=== PATIENT | female | born 2005 | race Caucasian/White ===

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

== ENCOUNTER 2024-03-10 15:55 | Emergency (ER) | payer OTHER, SELFPAY ==
--- NOTE | ~2024-03-10 | US_ITS ---
EXAMINATION: US renal BI DATE: 03/10/2024 20:17 INDICATION: Right flank pain and hematuria TECHNIQUE: Multiple ultrasound grayscale images of the kidneys were obtained. COMPARISON: None. FINDINGS: The right kidney measures 11.1 x 4.7 x 4.3 cm. The left kidney measures 1.7 x 4.6 x 4.5 cm. The kidne ys demonstrate normal echogenicity. There is mild right hydronephrosis. There is no left hydronephros is. No stones identified. The bladder is normal. IMPRESSION: 1. Mild right hydronephrosis. Reviewed, dictated and finalized at location A.
[2024-03-10 16:03] VITALS: BP 137/61; PULSE 99; RESP 16; TEMP 36.6; O2SAT 99
[2024-03-10 17:54] VITALS: BP 108/59; PULSE 93; RESP 18; O2SAT 100
--- NOTE | 2024-03-10 18:05 | ED.FEMALEGU ---
HPI - Female Genitourinary General Chief complaint: Urogenital-Female <Lacy Mistry PA-C - Last Filed: 03/10/24 21:07> Stated complaint: RIGHT FLANK PAIN <Lacy Mistry PA-C - Last Filed: 03/10/24 21:07> Time Seen by Provider: 03/10/24 17:01 <Lacy Mistry PA-C - Last Filed: 03/10/24 21:07> History of Present Illness HPI Narrative: 18-year-old female, A1, who is currently 21 weeks presents to emergency department for right flank pain for 1 day. Patient states she began having pain Last night to her right flank and is concerned she has a kidney infection. States she has similar pain in July 2023 and was evaluated for this, the source of her pain was unknown. She denies history of kidney stones. She does state that she has pain in her right kidney when she urinates but denies burning when urinating. Denies hematuria, urinary frequency urgency. Denies abdominal pain, fever, nausea vomiting, chest pain or shortness of breath. Her OBGYN is Dr. Adler. 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 She denies vaginal bleeding, leaking vaginal fluids. <Lacy Mistry PA-C - Last Filed: 03/10/24 21:07> Related Data Allergies/Adverse reactions: Allergies Allergy/AdvReac Type Severity Reaction Status Date / Time No Known Allergies Allergy Verified 03/10/24 17:55 <Lacy Mistry PA-C - Last Filed: 03/10/24 21:07> Review of Systems Review of Systems: All systems reviewed & are unremarkable except as noted in HPI and below <Lacy Mistry PA-C - Last Filed: 03/10/24 21:07> Exam Narrative: GENERAL: Well-appearing, well-nourished, and in no acute distress. HEAD: Normocephalic, atraumatic. EYES: PERRLA and EOMI. ENT: Nares clear, no rhinorrhea or epistaxis. Mucous membranes moist. NECK: Supple. CHEST: Clear to auscultation. No respiratory distress. HEART: Regular rate and rhythm. No murmur heard. Normal peripheral pulses. ABDOMEN: abdomen gravid, uterus palpated just near the umbilicus. abdomen otherwise soft, nontender. Normoactive bowel sounds. BACK: Minimal tenderness to right CVA, more tenderness noted lateral to the CVA region. No overlying skin changes EXTREMITIES: Normal range of motion. No edema. SKIN: Warm, dry, no rash. NEURO: No focal deficits. Alert and oriented x3 <Lacy Mistry PA-C - Last Filed: 03/10/24 21:07> Course OPERATIONS SUPPORT COORDINATOR/PA Physician Supervision For this patient encounter, I reviewed the OPERATIONS SUPPORT COORDINATOR or PA documentation, treatment plan, and medical decision making; and I had [id number] time with this patient. <Mg Martinez MD - Last Filed: 03/10/24 21:54> Vital Signs Vital signs: Vital Signs Temperature 97.9 F 03/10/24 16:03 Pulse Rate 99 03/10/24 16:03 Respiratory Rate 16 03/10/24 16:03 Blood Pressure 137/61 03/10/24 16:03 Pulse Oximetry 99 03/10/24 16:03 Oxygen Delivery Room Air 03/10/24 16:03 Temperature 97.9 F 03/10/24 16:03 Pulse Rate 87 03/10/24 20:12 Respiratory Rate 17 03/10/24 18:35 Blood Pressure 112/71 03/10/24 20:12 Pulse Oximetry 100 03/10/24 18:35 Oxygen Delivery Room Air 03/10/24 16:03 <Lacy Mistry PA-C - Last Filed: 03/10/24 21:07> Vital Signs Temperature 97.9 F 03/10/24 16:03 Pulse Rate 99 03/10/24 16:03 Respiratory Rate 16 03/10/24 16:03 Blood Pressure 137/61 03/10/24 16:03 Pulse Oximetry 99 03/10/24 16:03 Oxygen Delivery Room Air 03/10/24 16:03 Temperature 97.9 F 03/10/24 16:03 Pulse Rate 87 03/10/24 20:12 Respiratory Rate 17 03/10/24 18:35 Blood Pressure 112/71 03/10/24 20:12 Pulse Oximetry 100 03/10/24 18:35 Oxygen Delivery Room Air 03/10/24 16:03 <Mg Martinez MD - Last Filed: 03/10/24 21:54> MDM - Female Genitourinary MDM Narrative Medical decision making narrative: 18-year-old female who is currently
[2024-03-10] MEDS: ACETAMINOPHEN 500 MG TABLET 1000 MG PO (18:13)
[2024-03-10 18:26] LABS: Basophils Percent Auto 0.4 % (0.2-1.2); Eosinophils Absolute Auto 0.1 K/mm3 (0-0.3); Eosinophils Percent Auto 1.3 % (0-4.4); Hematocrit 29.1 % (37.0-47.0); Hemoglobin 9.2 g/dL (12.0-15.0); Immature Granulocyte Absolute 0.08 K/mm3 (0.00-0.031); Immature Granulocyte Percent A 0.7 % (0-0.5); Lymphocytes Absolute Auto 1.56 K/mm3 (0.9-3.2); Lymphocytes Percent Auto 14.4 % (18.3-44.2); Mean Corpuscular HGB Conc 31.6 g/dl (32-36); Mean Corpuscular Hemoglobin 23.8 pg (26-34); Mean Corpuscular Volume 75.4 fl (80-100); Mean Platelet Volume 10.4 fl (7.4-10.4); Monocytes Percent Auto 8.7 % (2.6-8.5); Neutrophils Absolute Auto 8.1 K/mm3 (1.3-6.7); Neutrophils Percent Auto 74.5 % (45.5-73.1); Platelet Count Result 264 k/mm3 (150-375); Red Blood Count 3.86 M/mm3 (4.2-5.4); Red Cell Distribution Width 15.2 % (11.5-14.5); White Blood Count 10.9 K/mm3 (4.5-10.0)
[2024-03-10 18:35] VITALS: BP 107/53; PULSE 83; RESP 17; O2SAT 100
[2024-03-10 18:44] LABS: Alanine Aminotransferase 82 U/L (6-35); Albumin Level 3.7 g/dL (3.5-5.1); Alkaline Phosphatase 96 U/L (38-126); Anion Gap 6 mmol/L (4-12); Aspartate Amino Transferase 60 U/L (14-36); Bilirubin,Total 0.2 mg/dL (0.2-1.3); Blood Urea Nitrogen 6 mg/dL (7-17); Calcium 8.9 mg/dL (8.4-10.2); Carbon Dioxide 25 mmol/L (22-30); Chloride 104 mmol/L (98-107); Estimated CRCL calculation 138 ml/min; Estimated Glomerular Filt Rate > 60; Glucose 76 mg/dL (65-110); Potassium 3.7 mmol/L (3.4-5.0); Sodium 135 mmol/L (137-145)
[2024-03-10 18:45] LABS: Appearance Urine Clear (Clear); Bacteria Urine None Seen /hpf; Bilirubin Urine Negative (Negative); Blood Urine Non-Hemolyzed Trace (Negative); Color Urine Yellow (Yellow); Glucose Urine UA Negative (Negative); Ketones Urine Negative (Negative); Leukocyte Esterase Ur Negative LEU/UL (Negative); Nitrate Urine Negative (Negative); Non Pathogenic Casts 0-2; Protein Urine Negative (Negative); Specific Grav Ur 1.019 (1.001-1.035); Squamous Epithelial Cell Urine None Seen /hpf (Few); WBC Urine 0-5 /hpf (0-3); pH Urine 6.5 (5.0-9.0)
[2024-03-10 18:56] LABS: Add Urine Microscopic? YES
[2024-03-10 20:12] VITALS: BP 112/71; PULSE 87
[2024-03-10 22:16] VITALS: BP 102/44; PULSE 91; RESP 18; O2SAT 99
== END 2024-03-10 22:19 | disposition home or self-care (01) ==
PROVIDERS: Emergency Provider Physician Assistant; PCP Pediatrics
DX: O26.892 Other specified pregnancy related conditions, second trimester (principal); R10.9 Unspecified abdominal pain; R31.1 Benign essential microscopic hematuria; O99.012 Anemia complicating pregnancy, second trimester; D50.9 Iron deficiency anemia, unspecified; Z3A.21 21 weeks gestation of pregnancy
CPT/HCPCS: 36415; 76775; 80053; 81001; 85025; 96365; 99284; A9270; J0696

== ENCOUNTER 2024-03-13 11:42 | Outpatient (CLI) | payer OTHER, SELFPAY ==
--- NOTE | ~2024-03-13 | US_ITS ---
Renal-Bladder ultrasound Clinical History: Low back pain Technique: Real-time sonographic imaging of the kidneys and urinary bladder was performed. Findings: The right kidney measures 12.3 cm in length and the left kidney measures 11.7 cm. There is mild bilateral hydronephrosis. No renal stone evident. Renal cortical echogenicity is within normal l imits. No renal mass lesion is identified. The urinary bladder is moderately distended at the time of this exam. No intraluminal echoes are iden tified. No abnormal wall thickening is seen. Impression: Mild bilateral hydronephrosis. Reviewed, dictated and finalized at location M. Impression: Mild bilateral hydronephrosis.
== END 2024-03-13 11:43 ==
PROVIDERS: PCP Internal Medicine; Visit Provider Obstetrics & Gynecology
DX: M54.50 Low back pain, unspecified (principal); N13.30 Unspecified hydronephrosis
CPT/HCPCS: 76775

== ENCOUNTER 2024-03-15 16:27 | Observation (INO) | payer OTHER, SELFPAY ==
[2024-03-15] VITALS (7 sets, daily range): BP systolic 126–137; BP diastolic 53–69; PULSE 87–98; RESP 16–18; TEMP 37.1; BMI 28.6
--- NOTE | 2024-03-15 16:59 | OBADM ---
This patient, Janine Ulrich, admitted to the OB room 116 for observation. Patient/family oriented to hospital policies and general routines including ID bracelet, bed and alarms, visiting hours, pain management, procedures, bathroom and other care routines, personal items, smoking policy, room service/diet, and visiting hours. Patient/Family are encouraged to report perceived risks to care and to ask questions if they do not understand what they are told or what they should do.
[2024-03-15] MEDS: LACTATED RINGERS 1,000 ML 999 ML IV CONT (17:59)
[2024-03-15 18:12] LABS: Basophils Absolute Auto 0.1 K/mm3 (0.0-0.1); Basophils Percent Auto 0.5 % (0.2-1.2); Eosinophils Absolute Auto 0.1 K/mm3 (0-0.3); Eosinophils Percent Auto 1.1 % (0-4.4); Hematocrit 29.8 % (37.0-47.0); Hemoglobin 9.2 g/dL (12.0-15.0); Immature Granulocyte Absolute 0.06 K/mm3 (0.00-0.031); Immature Granulocyte Percent A 0.5 % (0-0.5); Lymphocytes Absolute Auto 1.65 K/mm3 (0.9-3.2); Lymphocytes Percent Auto 14.9 % (18.3-44.2); Mean Corpuscular HGB Conc 30.9 g/dl (32-36); Mean Corpuscular Hemoglobin 23.8 pg (26-34); Monocytes Absolute Auto 0.9 K/mm3 (0.1-0.6); Monocytes Percent Auto 7.9 % (2.6-8.5); Neutrophils Absolute Auto 8.3 K/mm3 (1.3-6.7); Neutrophils Percent Auto 75.1 % (45.5-73.1); Platelet Count Result 296 k/mm3 (150-375); Red Blood Count 3.87 M/mm3 (4.2-5.4); Red Cell Distribution Width 15.3 % (11.5-14.5); White Blood Count 11.1 K/mm3 (4.5-10.0)
[2024-03-15 18:25] LABS: Alanine Aminotransferase 42 U/L (6-35); Alkaline Phosphatase 101 U/L (38-126); Anion Gap 11 mmol/L (4-12); Aspartate Amino Transferase 29 U/L (14-36); Bilirubin,Total 0.3 mg/dL (0.2-1.3); Blood Urea Nitrogen 7 mg/dL (7-17); Calcium 9.1 mg/dL (8.4-10.2); Carbon Dioxide 19 mmol/L (22-30); Chloride 107 mmol/L (98-107); Estimated CRCL calculation 138 ml/min; Estimated Glomerular Filt Rate > 60; Glucose 81 mg/dL (65-110); Potassium 3.5 mmol/L (3.4-5.0); Sodium 137 mmol/L (137-145)
[2024-03-15] MEDS: ACETAMINOPHEN 500 MG TABLET 1000 MG PO (18:35)
--- NOTE | 2024-03-17 13:01 | PM.OBTRLD ---
OB - Triage/Final Diagnosis Visit Information Date of evaluation: 03/15/24 Reason for evaluation: other (abd cramping) Comments/Additional reasons for admission: I have assessed the risk for this patient, Janine James Ulrich, and determined that she would benefit from observation care. Evaluation Laboratory results: Laboratory Tests 03/15/24 18:01 WBC 11.1 H RBC 3.87 L Hgb 9.2 L Hct 29.8 L MCV 77.0 L MCH 23.8 L MCHC 30.9 L RDW 15.3 H Plt Count 296 MPV 11.0 H Immature Gran % (Auto) 0.5 Neut % (Auto) 75.1 H Lymph % (Auto) 14.9 L [place] % (Auto) 7.9 Eos % (Auto) 1.1 Baso % (Auto) 0.5 Lymph # (Auto) 1.65 [place] # (Auto) 0.9 H Eos # (Auto) 0.1 Baso # (Auto) 0.1 Abs Immat Gran (auto) 0.06 H Absolute Neuts (auto) 8.3 H Absolute Nucleated RBC 0.000 Nucleated RBC % 0.0 Sodium 137 Potassium 3.5 Chloride 107 Carbon Dioxide 19 L Anion Gap 11 BUN 7 Creatinine 0.50 L Estim Creat Clear Calc 138 Estimated GFR > 60 Glucose 81 Calcium 9.1 Total Bilirubin 0.3 AST 29 ALT 42 H Alkaline Phosphatase 101 Total Protein 7.0 Albumin 4.0
== END 2024-03-15 19:21 | disposition home or self-care (01) ==
PROVIDERS: Advanced Practice Midwife; Admitting Provider Obstetrics & Gynecology; PCP Internal Medicine; Visit Provider Obstetrics & Gynecology
DX: O26.892 Other specified pregnancy related conditions, second trimester (principal); R10.9 Unspecified abdominal pain; Z3A.22 22 weeks gestation of pregnancy
CPT/HCPCS: 36415; 80053; 85025; A9270; G0378; G0379; J7120

== ENCOUNTER 2024-03-16 11:34 | Observation (INO) | payer OTHER, SELFPAY ==
--- NOTE | ~2024-03-16 | US_ITS ---
Pelvic ultrasound. Clinical History: Vaginal bleeding, third trimester Technique: Realtime transabdominal and transvaginal scanning of the pelvis was performed. Color flow Doppler and Doppler spectral analysis were performed. Findings: The uterus is anteverted, and contains an intrauterine gestation. heart rate is 143 b pm. Breech presentation noted. Placenta anteriorly located. No significant placental abnormality iden tified. Neither ovary seen. No adnexal mass seen. There is no evidence of free fluid in the cul de sac. Impression: No placental abnormality seen. Breech presentation of live intrauterine gestation, with heart rate 143 bpm. Reviewed, dictated and finalized at location . Impression: No placental abnormality seen. Breech presentation of live intrauterine gestation, with heart rate 143 b pm.
--- NOTE | 2024-03-16 11:34 | OBADM ---
This patient, Janine Ulrich, admitted to the OB room OB Post 116 for observation. pt states she started to have vaginal bleeding yesterday around 1600 and was seen in the hospital evaluated. SVE and Lab was done and sent home. she has never have to wear liner or pads for vaginal bleeding and only when she wipes. She states she still has vaginal bleeding so came if for evaluation. Patient/family oriented to hospital policies and general routines including ID bracelet, bed and alarms, visiting hours, pain management, procedures, bathroom and other care routines, personal items, smoking policy, room service/diet, and visiting hours. Patient/Family are encouraged to report perceived risks to care and to ask questions if they do not understand what they are told or what they should do.
[2024-03-16 12:00] VITALS: BMI 28.8
[2024-03-16 12:06] VITALS: BP 127/63; PULSE 90
[2024-03-16 12:15] VITALS: BP 122/64; PULSE 88
--- NOTE | 2024-04-09 21:42 | PM.OBTRLD ---
OB - Triage/Final Diagnosis Visit Information Comments/Additional reasons for admission: I have assessed the risk for this patient, Janine Ulrich, and determined that she would benefit from observation care. Final Diagnosis (1) Vaginal bleeding: Code(s): N93.9 - Abnormal uterine and vaginal bleeding, unspecified Status: Acute
== END 2024-03-16 13:20 | disposition home or self-care (01) ==
PROVIDERS: Admitting Provider Obstetrics & Gynecology; PCP Internal Medicine; Visit Provider Obstetrics & Gynecology
DX: O46.90 Antepartum hemorrhage, unspecified, unspecified trimester (principal)
CPT/HCPCS: 76815; G0378; G0379

== ENCOUNTER 2024-06-19 06:12 | Observation (INO) | payer OTHER, SELFPAY ==
[2024-06-19 06:37] VITALS: BP 115/66; PULSE 115
[2024-06-19 06:45] VITALS: BP 130/79; PULSE 106
[2024-06-19 06:59] VITALS: BMI 31.4
[2024-06-19 07:00] VITALS: BP 134/70; PULSE 93
--- NOTE | 2024-06-19 07:08 | LDADM ---
This patient, Janine Ulrich, was admitted to OB Post 116 on 06/19/24 at 06:12. Plans for labor, pain management and were discussed with patient. Patient/family oriented to hospital policies and general routines including ID bracelet, bed and alarms, visiting hours, pain management, procedures, bathroom and other care routines, personal items, smoking policy, room service/diet and guest tray routines, security routines, and visiting hours. Patient/Family are encouraged to report perceived risks to care and to ask questions if they do not understand what they are told or what they should do. See OBIX for further documentation.
[2024-06-19 07:10] LABS: Add Urine Microscopic? NO; Appearance Urine Clear (Clear); Bilirubin Urine Negative (Negative); Blood Urine Negative (Negative); Color Urine Yellow (Yellow); Glucose Urine UA Negative (Negative); Ketones Urine Negative (Negative); Leukocyte Esterase Ur Negative LEU/UL (Negative); Nitrate Urine Negative (Negative); Protein Urine Negative (Negative); Urobilinogen Urine 0.2 mg/dL (<2.0)
[2024-06-19 07:15] VITALS: BP 128/73; PULSE 98
[2024-06-19 07:30] VITALS: BP 138/72; PULSE 94
--- NOTE | 2024-06-19 08:01 | PC.NURSE ---
Patient admitted for observation with complaints of abdominal cramping and vaginal bleeding with discharge since 0500 this morning. Patient rates intermittent cramping a 3-4/10 on the pain scale. A ROM+ test was performed and was negative. UA was sent and was normal. No bleeding was noted upon inspection. RN spoke with Dr. Adler on phone at [phone]. Notified of test results, category I tracing, contraction frequency, and patient's reported pain level. Patient has an appointment in the office later today with Dr. Adler. gave verbal orders for discharge. Patient agrees with plan of care and has no questions at this time.
[2024-06-19 08:10] LABS: OBXCEM ROM Plus Negative (Negative)
--- NOTE | 2024-07-13 20:00 | PM.OBTRLD ---
OB - Triage/Final Diagnosis Visit Information Comments/Additional reasons for admission: I have assessed the risk for this patient, Janine James Robersonyoli, and determined that she would benefit from observation care. Evaluation Laboratory results: Laboratory Tests 06/19/24 06/19/24 06:59 07:01 Urine Color Yellow Urine Appearance Clear Urine pH 7.0 Ur Specific [place] 1.010 Urine Protein Negative Urine Glucose (UA) Negative Urine Ketones Negative Ur Blood (Man) Negative Urine Nitrate Negative Urine Bilirubin Negative Urine Urobilinogen 0.2 Leukocyte Esterase Rfl Negative Membranes Rupture Rom plus negative Final Diagnosis (1) False labor: Code(s): O47.9 - False labor, unspecified Status: Acute
== END 2024-06-19 07:54 | disposition home or self-care (01) ==
PROVIDERS: Admitting Provider Obstetrics & Gynecology; Visit Provider Obstetrics & Gynecology
DX: O47.03 False labor before 37 completed weeks of gestation, third trimester (principal); Z3A.36 36 weeks gestation of pregnancy
CPT/HCPCS: 81003; 84112; G0378; G0379

== ENCOUNTER 2024-06-20 11:35 | Observation (INO) | payer OTHER, SELFPAY ==
[2024-06-20] VITALS (15 sets, daily range): BP systolic 114–149; BP diastolic 59–89; PULSE 76–107; RESP 16–22; TEMP 36.8; O2SAT 99–100; BMI 32.6
--- NOTE | 2024-06-20 12:22 | ECG_ITS ---
Test Date: 2024-06-20 12:49:43 Measurements Intervals [place] Rate: 82 P: 13 SC: 153 QRS: 15 QRSD: 78 T: 0 QT: 348 QTc: 407 Interpretive Statements SINUS RHYTHM CONSIDER INFERIOR INFARCT, AGE INDETERMINATE BASELINE ARTIFACT- I, II, III, AVR, AVL, AVF ABNORMAL ECG No previous ECG available for comparison Electronically Signed On 06-20-2024 13:05:21 [employer] by Mac Parmar D.O.
--- NOTE | 2024-06-20 13:14 | PC.NURSE ---
Annel MADERA RN in room to monitor patient.
[2024-06-20 13:50] LABS: Basophils Absolute Auto 0.1 K/mm3 (0.0-0.1); Basophils Percent Auto 0.3 % (0.2-1.2); Eosinophils Percent Auto 0.3 % (0-4.4); Hematocrit 31.3 % (37.0-47.0); Hemoglobin 9.2 g/dL (12.0-15.0); Immature Granulocyte Absolute 0.21 K/mm3 (0.00-0.031); Immature Granulocyte Percent A 1.4 % (0-0.5); Lymphocytes Absolute Auto 0.78 K/mm3 (0.9-3.2); Lymphocytes Percent Auto 5.2 % (18.3-44.2); Mean Corpuscular HGB Conc 29.4 g/dl (32-36); Mean Corpuscular Hemoglobin 20.6 pg (26-34); Mean Corpuscular Volume 70.2 fl (80-100); Mean Platelet Volume 10.3 fl (7.4-10.4); Monocytes Absolute Auto 0.3 K/mm3 (0.1-0.6); Monocytes Percent Auto 2.1 % (2.6-8.5); Neutrophils Absolute Auto 13.6 K/mm3 (1.3-6.7); Neutrophils Percent Auto 90.7 % (45.5-73.1); Platelet Count Result 242 k/mm3 (150-375); Red Blood Count 4.46 M/mm3 (4.2-5.4); Red Cell Distribution Width 21.7 % (11.5-14.5)
--- NOTE | 2024-06-20 13:51 | ED.GENADULT ---
HPI - General Adult General Chief complaint: Dizziness Stated complaint: lightheaded/dizzy Time Seen by Provider: 06/20/24 12:08 History of Present Illness HPI narrative: patient 18-year-old female who presents emergency department with chief complaint of feeling strange and dizziness and numbness over her body while receiving an iron infusion. Patient was in the infusion center receiving an iron infusion and started having numbness and started having dizziness the patient is 36 weeks reported that she was feeling some contractions as well Related Data Home Medications Medication Instructions Recorded Confirmed vit no.95-ferrous 1 tablet PO DAILY 03/15/24 06/19/24 fumarate 28 mg-folic acid 800 mcg tablet () ferrous sulfate 325 mg (65 mg 325 mg PO DAILY 06/13/24 06/19/24 iron) tablet (iron) Allergies Allergy/AdvReac Type Severity Reaction Status Date / Time No Known Allergies Allergy Verified 06/20/24 12:44 Review of Systems Review of Systems: A 10 system review of systems was completed on the patient and is negative except for what is stated in the HPI. Nursing and ancillary documentation was reviewed. Exam Narrative: GENERAL: Well-appearing, well-nourished, and in no acute distress. HEAD: Normocephalic, atraumatic. EYES: PERRLA and EOMI. ENT: Nares clear, no rhinorrhea or epistaxis. Mucous membranes moist. NECK: Supple. CHEST: Clear to auscultation. No respiratory distress. HEART: Regular rate and rhythm. No murmur heard. Normal peripheral pulses. ABDOMEN: Soft, nontender, nondistended, normal active bowel sounds. gravid abdomen EXTREMITIES: Normal range of motion. No edema. SKIN: Warm, dry, no rash. NEURO: No focal deficits. Alert and oriented x3. PSYCH: Normal mood and affect. Course Vital Signs Vital signs: Vital Signs Temperature 36.8 C 06/20/24 11:38 Pulse Rate 103 H 06/20/24 11:38 Respiratory Rate 16 06/20/24 11:38 Blood Pressure 149/89 H 06/20/24 11:38 Pulse Oximetry 100 06/20/24 11:38 Oxygen Delivery Room Air 06/20/24 11:38 Temperature 36.8 C 06/20/24 11:38 Pulse Rate 83 06/20/24 12:45 Respiratory Rate 16 06/20/24 11:38 Blood Pressure 149/89 H 06/20/24 11:38 Pulse Oximetry 100 06/20/24 11:38 Oxygen Delivery Room Air 06/20/24 11:38 Medical Decision Making MDM Narrative Medical decision making narrative: differential diagnosis includes pre from, contractions, labor, false labor, side-effect medication the patient's symptoms from the infusion have resolved at this point the patient was seen by the labor and delivery nurse and had a negative amniotic fluid check patient will be sent over to OB for further observation Vital Signs Vital Signs: Vital Signs Temperature 36.8 C 06/20/24 11:38 Pulse Rate 103 H 06/20/24 11:38 Respiratory Rate 16 06/20/24 11:38 Blood Pressure 149/89 H 06/20/24 11:38 Pulse Oximetry 100 06/20/24 11:38 Oxygen Delivery Room Air 06/20/24 11:38 Temperature 36.8 C 06/20/24 11:38 Pulse Rate 83 06/20/24 12:45 Respiratory Rate 16 06/20/24 11:38 Blood Pressure 149/89 H 06/20/24 11:38 Pulse Oximetry 100 06/20/24 11:38 Oxygen Delivery Room Air 06/20/24 11:38 Lab Data 06/20/24 13:29 06/20/24 13:29 Labs: Lab Results 06/20/24 06/20/24 06/20/24 Range/Units 13:14 13:29 15:00 WBC 15.0 H (4.5-10.0) K/mm3 RBC 4.46 (4.2-5.4) M/mm3 Hgb 9.2 L (12.0-15.0) g/dL Hct 31.3 L (37.0-47.0) % MCV 70.2 L (80-100) fl MCH 20.6 L (26-34) pg MCHC 29.4 L (32-36) g/dl RDW 21.7 H (11.5-14.5) % Plt Count 242 (150-375) k/mm3 MPV 10.3 (7.4-10.4) fl Immature Gran % (Auto) 1.4 H (0-0.5) % Neut % (Auto) 90.7 H (45.5-73.1) % Lymph % (Auto) 5.2 L (18.3-44.2) % [place] % (Auto) 2.1 L (2.6-8.5) % Eos % (Auto) 0.3 (0-4.4) % Baso % (Auto) 0.3 (0.2-1.2) % Lymph # (Auto) 0.78 L (0.9-3.2) K/mm3 [place] # (Auto) 0.3 (0.1-0.6) K/mm3 Eos # (Auto) 0.0 (0-0.3) K/mm3 Baso # (Auto) 0.1 (0.0-0.1) K/mm3 Abs Immat Gran (auto) 0.21 H (0.00-0.031) K/mm3 Absolute Neuts (auto) 13.6 H (1.3-6.7) K/mm3 Absolute Nucleated RBC 0.000 (0.0-0.012) K/mm3 Nucleated RBC % 0.0 (0.0-0.2) % Platelet Estimate Adequate (Adequate) Hypochromasia 1+ Anisocytosis 2+ Microcytosis 1+ (NORMAL) Ovalocytes 1+ Schistocytes None seen Sodium 135 L (137-145) mmol/L Potassium 4.0 (3.4-5.0) mmol/L Chloride 109 H (98-107) mmol/L Carbon Dioxide 20 L (22-30) mmol/L Anion Gap 6 (4-12) mmol/L BUN 5 L (7-17) mg/dL Creatinine 0.50 L (0.7-1.0) mg/dL Estim Creat Clear Calc 147 ml/min Estimated GFR > 60 (59 - ) Glucose 81 (65-110) mg/dL Calcium 9.2 (8.4-10.2) mg/dL Magnesium 1.8 (1.6-2.3) mg/dL Total Bilirubin 0.5 (0.2-1.3) mg/dL AST 26 (14-36) U/L ALT 20 (6-35) U/L Alkaline Phosphatase 188 H (38-126) U/L Total Protein 7.0 (6.3-8.2) g/dL Albumin 3.6 (3.5-5.1) g/dL Urine Color Yellow (Yellow) Urine Appearance Cloudy H (Clear) Urine pH 7.5 (5.0-9.0) Ur Specific [place] 1.012 (1.001-1.035) Urine Protein Negative (Negative) mg/dL Urine Glucose (UA) Negative (Negative) mg/dL Urine Ketones Negative (Negative) mg/dL Ur Blood (Man) Negative (Negative) Urine Nitrate Negative (Negative) Urine Bilirubin Negative (Negative) Urine Urobilinogen 0.2 (<2.0) mg/dL Leukocyte Esterase Rfl 2+ H (Negative) [place]/UL Urine RBC 0-2 (0-2) /hpf Urine WBC 11-20 H (0-3) /hpf Ur Squamous Epith Cells Moderate (Few) /hpf Urine Bacteria 1+ H /hpf Urine Casts 0-2 Membranes Rupture Rom plus negative (Negative) Discharge Plan Discharge Clinical Impression: Abdominal pain during , Medication side effect Patient Disposition: Still a Patient Condition: Stable Prescriptions: No Action ferrous sulfate [iron] 325 mg (65 mg iron) Tablet 325 mg PO DAILY PNV cmb#95-ferrous fumarate-FA [] 28 mg iron- 800 mcg Tablet 1 tablet PO DAILY Follow-up/Referrals: UNKNOWN,DOCTOR [Primary Care Provider] - Time of Disposition: 15:31
[2024-06-20 13:57] LABS: Add Urine Microscopic? YES; Appearance Urine Cloudy (Clear); Bacteria Urine 1+ /hpf; Bilirubin Urine Negative (Negative); Blood Urine Negative (Negative); Color Urine Yellow (Yellow); Glucose Urine UA Negative (Negative); Ketones Urine Negative (Negative); Leukocyte Esterase Ur 2+ LEU/UL (Negative); Nitrate Urine Negative (Negative); Non Pathogenic Casts 0-2; Protein Urine Negative (Negative); RBC Urine 0-2 /hpf (0-2); Specific Grav Ur 1.012 (1.001-1.035); Squamous Epithelial Cell Urine Moderate /hpf (Few); Urobilinogen Urine 0.2 mg/dL (<2.0); pH Urine 7.5 (5.0-9.0)
[2024-06-20 14:11] LABS: Platelet Estimate Adequate (Adequate)
[2024-06-20 14:12] LABS: Anisocytosis 2+; Hypochromasia 1+; Microcytosis 1+ (NORMAL); Ovalocytes 1+
[2024-06-20 14:13] LABS: Schistocytes None Seen
[2024-06-20 14:15] LABS: Alanine Aminotransferase 20 U/L (6-35); Albumin Level 3.6 g/dL (3.5-5.1); Alkaline Phosphatase 188 U/L (38-126); Anion Gap 6 mmol/L (4-12); Aspartate Amino Transferase 26 U/L (14-36); Bilirubin,Total 0.5 mg/dL (0.2-1.3); Blood Urea Nitrogen 5 mg/dL (7-17); Calcium 9.2 mg/dL (8.4-10.2); Carbon Dioxide 20 mmol/L (22-30); Chloride 109 mmol/L (98-107); Estimated CRCL calculation 147 ml/min; Estimated Glomerular Filt Rate > 60; Glucose 81 mg/dL (65-110); Magnesium 1.8 mg/dL (1.6-2.3); Sodium 135 mmol/L (137-145)
[2024-06-20 15:21] LABS: OBXCEM ROM Plus Negative (Negative)
--- NOTE | 2024-06-20 15:52 | OBADM ---
This patient, Janine Ulrich, admitted to the OB room Labor/Delivery/Recovery 118 for observation. Patient/family oriented to hospital policies and general routines including ID bracelet, bed and alarms, visiting hours, pain management, procedures, bathroom and other care routines, personal items, smoking policy, room service/diet, and visiting hours. Patient/Family are encouraged to report perceived risks to care and to ask questions if they do not understand what they are told or what they should do.
== END 2024-06-20 17:15 | disposition home or self-care (01) ==
LOC: ANHED 15:31 → ANHLDR 15:36
PROVIDERS: Admitting Provider Obstetrics & Gynecology; Emergency Provider Emergency Medicine; Visit Provider Obstetrics & Gynecology
DX: O26.893 Other specified pregnancy related conditions, third trimester (principal); R10.9 Unspecified abdominal pain; R42 Dizziness and giddiness; T45.4X5A Adverse effect of iron and its compounds, initial encounter; Z3A.36 36 weeks gestation of pregnancy
CPT/HCPCS: 36415; 80053; 81001; 83735; 84112; 85025; 87086; 93005; 99285; G0378

== ENCOUNTER 2024-07-09 05:56 | Inpatient (IN) | payer OTHER, SELFPAY ==
[2024-07-09] VITALS (146 sets, daily range): BP systolic 81–185; BP diastolic 42–151; PULSE 81–294; RESP 20; TEMP 36.1–36.9; O2SAT 97–100; BMI 33.0
--- NOTE | ~2024-07-09 | US_ITS ---
US venous doppler [facility] DATE: 07/11/2024 08:28 INDICATION: Left lower extremity pain and swelling. Positive Homans sign. One day . TECHNIQ UE: Real-time and color flow imaging and Doppler analysis of the left lower extremity veins COMPARISON: None FINDINGS: There is spontaneous and phasic flow and normal augmentation and color flow signal and norm al compression of the veins of the left lower extremity. IMPRESSION: No evidence of left lower extremity deep venous thrombosis Reviewed, dictated and finalized at Location A. Reviewed, dictated and finalized at location A. 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
[2024-07-09 06:55] LABS: Basophils Absolute Auto 0.1 K/mm3 (0.0-0.1); Basophils Percent Auto 0.5 % (0.2-1.2); Eosinophils Absolute Auto 0.4 K/mm3 (0-0.3); Eosinophils Percent Auto 3.4 % (0-4.4); Hematocrit 37.5 % (37.0-47.0); Hemoglobin 11.6 g/dL (12.0-15.0); Immature Granulocyte Absolute 0.09 K/mm3 (0.00-0.031); Immature Granulocyte Percent A 0.7 % (0-0.5); Lymphocytes Absolute Auto 1.91 K/mm3 (0.9-3.2); Lymphocytes Percent Auto 14.9 % (18.3-44.2); Mean Corpuscular HGB Conc 30.9 g/dl (32-36); Mean Corpuscular Hemoglobin 23.2 pg (26-34); Mean Corpuscular Volume 75.2 fl (80-100); Mean Platelet Volume 10.8 fl (7.4-10.4); Monocytes Absolute Auto 1.1 K/mm3 (0.1-0.6); Monocytes Percent Auto 8.4 % (2.6-8.5); Neutrophils Absolute Auto 9.2 K/mm3 (1.3-6.7); Neutrophils Percent Auto 72.1 % (45.5-73.1); Platelet Count Result 253 k/mm3 (150-375); Red Blood Count 4.99 M/mm3 (4.2-5.4); White Blood Count 12.8 K/mm3 (4.5-10.0)
[2024-07-09 07:22] LABS: Anisocytosis 3+; Microcytosis 1+ (NORMAL); Platelet Estimate Adequate (Adequate)
[2024-07-09 07:23] LABS: Schistocytes None Seen
[2024-07-09 07:25] LABS: Ovalocytes 1+; Platelet Clumps Present
[2024-07-09 07:45] LABS: HIV 1/2 Ab P24 Ag Result Negative (Negative)
[2024-07-09] MEDS: LACTATED RINGERS 1,000 ML 125 ML IV CONT ×2 (07:52→18:43)
[2024-07-09] MEDS: OXYTOCIN 30 UNITS/NS 500 ML 30 UNITS/500 ML BAG IV CONT (07:52)
[2024-07-09 08:24] LABS: Rapid Plasma Reagin Non-Reactive (NonReactive)
[2024-07-09] MEDS: LACTATED RINGERS 500 ML 999 ML IV CONT (13:27)
--- NOTE | 2024-07-09 13:38 | P.PNAN_ITS ---
Anes - Eval Pre Procedure Procedure: Labor Epidural Date/Time: 07/09/24 13:38 Surgeon: Nayely Preop Diagnosis: Labor Pain Pre Op Diagnosis: IOL Patient Data Age: 18 Gender: F Height: 1.57 m Weight: 82 kg Last Vital Signs Temp 36.9 C 07/09/24 12:47 Pulse 93 07/09/24 13:34 Resp 20 07/09/24 12:47 BP 126/67 07/09/24 13:34 Pulse Ox 100 07/09/24 13:36 O2 Del Method Room Air 07/09/24 07:10 Allergies Allergy/AdvReac Type Severity Reaction Status Date / Time No Known Allergies Allergy Verified 06/27/24 08:41 Home Medications Medication Instructions Recorded Confirmed Type vit no.95-ferrous 1 tablet PO DAILY 03/15/24 07/09/24 History fumarate 28 mg-folic acid 800 mcg tablet () Laboratory Tests 07/09/24 06:14 WBC 12.8 H K/mm3 (4.5-10.0) RBC 4.99 M/mm3 (4.2-5.4) Hgb 11.6 L g/dL (12.0-15.0) Hct 37.5 % (37.0-47.0) MCV 75.2 L fl (80-100) MCH 23.2 L pg (26-34) MCHC 30.9 L g/dl (32-36) RDW TNP Plt Count 253 k/mm3 (150-375) MPV 10.8 H fl (7.4-10.4) Immature Gran % (Auto) 0.7 H % (0-0.5) Neut % (Auto) 72.1 % (45.5-73.1) Lymph % (Auto) 14.9 L % (18.3-44.2) [place] % (Auto) 8.4 % (2.6-8.5) Eos % (Auto) 3.4 % (0-4.4) Baso % (Auto) 0.5 % (0.2-1.2) Lymph # (Auto) 1.91 K/mm3 (0.9-3.2) [place] # (Auto) 1.1 H K/mm3 (0.1-0.6) Eos # (Auto) 0.4 H K/mm3 (0-0.3) Baso # (Auto) 0.1 K/mm3 (0.0-0.1) Abs Immat Gran (auto) 0.09 H K/mm3 (0.00-0.031) Absolute Neuts (auto) 9.2 H K/mm3 (1.3-6.7) Absolute Nucleated RBC 0.000 K/mm3 (0.0-0.012) Nucleated RBC % 0.0 % (0.0-0.2) Platelet Estimate Adequate (Adequate) Clumped Platelets Present Anisocytosis 3+ Microcytosis 1+ (NORMAL) Ovalocytes 1+ Schistocytes None seen RPR Non-reactive (NonReactive) HIV 1&2 Ab/P24 Ag 4thGn Negative (Negative) Blood Type O Positive Antibody Screen Negative : gestational age (, OSMEL 07/16/24) Patient hx anesthesia problems: none Family hx anesthesia problems: none Results Review: All pre-operative results and documents have been reviewed as part of the pre- operative evaluation. [facility] Social History Social History Smoking status: Never smoker Second hand tobacco smoke exposure: No Substance use: never Do You Feel Safe in your Home?: Yes Lack of Transportation: No Lack of Food: Never True Current Housing: I Have Housing Concerned About Future Housing: No Difficulty Paying Gas/Electric Bills: No Difficulty Paying for Meds: No Currently Unemployed: No Education: Decline to Answer Difficulty w/ Childcare or Family Care: No Spiritual care concerns: No Exam Day of Procedure 07/09/24 13:38 Heart: regular rate and rhythm Lungs: normal air movement Airway: Mallampati scale class II Neurological: alert and oriented
--- NOTE | 2024-07-09 21:03 | P.PCNOB_ITS ---
OB - Vaginal Delivery Note Procedure Delivery date: 07/09/24 Induction method: AROM and Per Pitocin Protocol Delivery monitor: External FHT and External Uterine Route of delivery: Laceration Description: Perineal - 1st Degree and Labial (left) Delivery repair: vicryl Specimen: No Quantitative Blood Loss (ml): 150 Anesthesia type: Epidural Disposition: Floor Complications: No immediate complications Baby Date of : 07/09/24 Time of : 20:49 Gestational Age by Date: 39 Infant gender: Male Weight (pounds): 8 Weight (ounces): 1 presentation: vertex position: Left Occiput Anterior Placenta delivery description: Spontaneous Cord Vessel Description: 3 Vessels and Nuchal Cord (x1) score one minute: 8 score five minutes: 9 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
[2024-07-09] MEDS: OXYTOCIN 30 UNITS/NS 500 ML 30 UNITS/500 ML BAG 125 UNITS IV CONT (21:18)
[2024-07-09] MEDS: IBUPROFEN 600 MG TABLET PO (22:35)
[2024-07-10 00:09] VITALS: BP 147/75; PULSE 94; RESP 18; TEMP 36.3; O2SAT 97
[2024-07-10 04:16] VITALS: BP 152/72; PULSE 92; RESP 18; TEMP 36.1; O2SAT 99
[2024-07-10 05:15] LABS: Hematocrit 35.6 % (37.0-47.0); Hemoglobin 11.1 g/dL (12.0-15.0)
[2024-07-10 07:20] VITALS: BP 121/60; PULSE 84; RESP 16; TEMP 36.4; O2SAT 100
--- NOTE | 2024-07-10 07:51 | PM.OBPNVD ---
OB - PN: Subj Subjective Date/time seen: 07/10/24 07:51 Interval history: PPD#1 Doing well, no issues Tolerating general diet Voiding without issue Baby doing well OB - PN: Obj Data Labs 07/10/24 04:02 Labs: Laboratory Results - last 24 hr 07/09/24 07/10/24 06:14 04:02 Hgb 11.1 L Hct 35.6 L RPR Non-reactive Blood Type O Positive Antibody Screen Negative OB - PN A/P Assessment and Plan (1) (spontaneous vaginal delivery): Code(s): O80 - Encounter for full-term uncomplicated delivery Status: Acute Plan day: 1 Plan: routine care Time Spent With Patient Time: Total time spent is greater than 50% in coordination of care (as documented) at patient's floor/unit and/or counseling patient: Review of Systems Review of Systems: All systems reviewed & are unremarkable except as noted in HPI and below Exam Const: General: comfortable and no acute distress Orientation/consciousness: patient oriented x3 Resp: Effort & Inspection: normal respiratory effort
[2024-07-10] MEDS: MULTIVIT/MIN/PREN/FOL AC/IRON TABLET 1 TAB PO (08:11)
[2024-07-10] MEDS: DOCUSATE SODIUM 100 MG CAPSULE PO ×2 (08:11→17:07)
--- NOTE | 2024-07-10 09:52 | WPDANLDPN2 ---
Anes-Prog Note L&D Date/Time: 07/10/24 09:52 Comfortable throughout: labor and delivery Neuraxial method: epidural Epidural/Spinal procedure site: clean & non-tender Neuro status: Neuro function grossly intact. Cardiovascular status: normal Respiratory status: normal Airway patency: baseline Mental status: baseline Post-Op hydration status: normal Vital Signs: Last Vital Signs Temp 36.4 C L 07/10/24 07:20 Pulse 84 07/10/24 07:20 Resp 16 07/10/24 07:20 BP 121/60 07/10/24 07:20 Pulse Ox 100 07/10/24 07:20 O2 Del Method Room Air 07/10/24 00:09 Pain score (VAS): 3/10 I/O: Intake & Output 07/09/24 07/10/24 07/10/24 23:59 07:59 15:59 Intake Total 26.8 Output Total 850 155 Balance -823.2 -155 Post-procedural complaints: none Patient feedback: Patient satisfied with anesthetic care.
[2024-07-10 13:02] VITALS: BP 137/79; PULSE 90; RESP 16; TEMP 36.5; O2SAT 100
[2024-07-10] MEDS: IBUPROFEN 600 MG TABLET PO (17:06)
[2024-07-10] MEDS: ACETAMINOPHEN 325 MG TABLET 650 MG PO (17:07)
[2024-07-10 19:43] VITALS: BP 129/61; PULSE 96; RESP 14; TEMP 37.1; O2SAT 100
[2024-07-10] MEDS: diphenhydrAMINE HCl CAP 25 MG CAPSULE PO (21:55)
[2024-07-11 07:15] VITALS: BP 134/77; PULSE 98; RESP 16; TEMP 36.1
[2024-07-11] MEDS: ACETAMINOPHEN 325 MG TABLET 650 MG PO (07:25)
[2024-07-11] MEDS: IBUPROFEN 600 MG TABLET PO (07:25)
--- NOTE | 2024-07-11 07:48 | PM.OBPNVD ---
OB - PN: Subj Subjective Date/time seen: 07/11/24 07:48 Interval history: PPD#2 Doing well, mild back pain Tolerating general diet Voiding without issue PUPPS rash over lower legs, uncomfortable but improved with benedryl Had left calf pain overnight per RN, LE doppler ordered to r/o DVT Baby doing wel If doppler normal, patient desires d/c home todayl OB - PN: Obj Data Labs 07/10/24 04:02 OB - PN A/P Assessment and Plan (1) Pain of left calf: Code(s): M79.662 - Pain in left lower leg Status: Acute Assessment and Plan: - left calf pain overnight - patient reports improvement today - exam overall normal aside from rash - likely 2/2 PUPPS rash however will order LE doppler to r/o DVT (2) (spontaneous vaginal delivery): Code(s): O80 - Encounter for full-term uncomplicated delivery Status: Acute Plan day: 2 Plan: routine care and discharge home Comments: ok to d/c home after doppler results if normal Time Spent With Patient Time: Total time spent is greater than 50% in coordination of care (as documented) at patient's floor/unit and/or counseling patient: Review of Systems Review of Systems: All systems reviewed & are unremarkable except as noted in HPI and below Exam Narrative: extensive PUPPS rash Const: General: comfortable and no acute distress Orientation/consciousness: patient oriented x3 Resp: Effort & Inspection: normal respiratory effort
--- NOTE | 2024-07-11 07:53 | PM.OBDSVD ---
DS: Admitting Diagnosis Discharge Date 07/11/24 Admitting Diagnosis induction of labor DS: Discharge Diagnosis Discharge Diagnosis (1) (spontaneous vaginal delivery): Code(s): O80 - Encounter for full-term uncomplicated delivery Status: Acute OB - DS: Summary OB Procedures : None OB Procedures Intrapartum: Spontaneous Vag Delivery OB Procedures: : None Peripartum Data Laceration Description: Perineal - 1st Degree and Labial (left) Time Spent with Patient Time attestation: Total time spent providing and/or coordinating discharge services: Discharge Plan Discharge Attending physician on discharge: Red Parks Discharging Clinician: Red Parks Patient Disposition: Home, Self-Care Activity: may shower, as tolerated and pelvic rest Diet: as tolerated Patient Instructions: Antibiotic Form Stand Alone Forms: General Discharge Information Follow-up/Referrals: Raymond Adler MD [Physician] - 4 Weeks Discharge Medications: New docusate sodium 100 mg Capsule 100 mg PO BID PRN (Reason: Constipation) Qty: 60 0RF ibuprofen 600 mg Tablet 600 mg PO Q6H PRN (Reason: Cramping) Qty: 30 0RF Continued PNV cmb#95-ferrous fumarate-FA [] 28 mg iron- 800 mcg Tablet 1 tablet PO DAILY Date of admission: 07/09/24 05:56 Primary Care Provider: UNKNOWN,DOCTOR Admitting Provider: Raymond Adler Attending physician on admission: Belgica Bar Condition: Stable
[2024-07-14 11:01] VITALS: BP 132/70; PULSE 90; RESP 20; TEMP 36.6; O2SAT 98
== END 2024-07-11 10:35 | disposition home or self-care (01) | DRG 807 ==
LOC: ANHOB2 07-11 09:50 → ANHLDR 07-15 13:29
PROVIDERS: Advanced Practice Midwife; Admitting Provider Obstetrics & Gynecology; Visit Provider Obstetrics & Gynecology
DX: O69.81X0 Labor and delivery complicated by cord around neck, without compression, not applicable or unspecified (principal); Z37.0 Single live birth; O70.0 First degree perineal laceration during delivery; O43.113 Circumvallate placenta, third trimester; Z3A.39 39 weeks gestation of pregnancy; Z23 Encounter for immunization; M79.662 Pain in left lower leg; O26.86 Pruritic urticarial papules and plaques of pregnancy (PUPPP)
CPT/HCPCS: 36415; 85014; 85018; 85025; 86592; 86703; 86850; 86900; 86901; 93971; A9270; G0432; J2590; J2795; J7120